=== PATIENT | male | born 1965 | race African-American/Black ===

== ENCOUNTER 2016-08-07 14:28 | Inpatient (IN) | payer MEDICARE, OTHER ==
[~2016-08-07] VITALS: Ht 179.1 cm; Wt 83.6 kg
[~2016-08-07 14:28] MED LIST: ASPI81TA9 PO; CARV6.25 PO; ERYT1OIN6 EACHEYE; HYDR-971 PO; LISI10TA2 PO; NAPR550T PO; OMEG300C PO; SPIR25TA3 PO
[2016-08-07] MEDS ORDERED: NITROGLYCERIN SUBLINGUAL 0.4 MG BOTTLE OF 25. SL PRN (14:45)
[2016-08-07] MEDS ORDERED: MORPHINE SULFATE 2 MG/ML DISP.SYRIN. IV/SQ PRN (14:45)
[2016-08-07 15:01] LABS: BASO # 0.1 x10^3/uL (0.0-0.2); BASO % 1 % (0-3); EOS % 1 % (0-3); HEMATOCRIT 42.9 % (39.0-53.0); HEMOGLOBIN 14.6 g/dL (13.0-17.5); LYMPH # 2.4 x10^3/uL (1.0-4.8); LYMPH % 54 % (24-48); MEAN CORPUSCULAR HEMOGLOBIN 33 pg (25-35); MEAN CORPUSCULAR HGB CONC 34 g/dL (31-37); MEAN CORPUSCULAR VOLUME 97 fL (79-100); MONO % 11 % (0-9); NEUT % 33 % (31-73); PLATELET COUNT 196 x10^3/uL (140-400); RED BLOOD COUNT 4.44 x10^6/uL (4.30-5.70); RED CELL DISTRIBUTION WIDTH 13.4 % (11.5-14.5); WHITE BLOOD COUNT 4.5 x10^3/uL (4.0-11.0)
[2016-08-07 15:10] LABS: INR 1.1 (0.8-1.1); PROTHROMBIN TIME PATIENT 13.5 SEC (11.7-14.0)
--- NOTE | 2016-08-07 15:10 | EKG ---
[facility] [address] [place] [address] Test Date: 2016-08-07 Test Time: 14:34:11 Pat Name: SAM CARRIZALES Department: Room: Gender: M Cable Layer: : 1965 Requested By: SHAHEEN BUSBY Order Number: [id number] Reading MD: Measurements Intervals [place] Rate: 83 P: 6 IA: 180 QRS: -13 QRSD: 90 T: -8 QT: 368 QTc: 433 Interpretive Statements SINUS RHYTHM LEFTWARD AXIS QRS(T) CONTOUR ABNORMALITY CONSISTENT WITH SEPTAL INFARCT AGE UNDETERMINED T ABNORMALITY IN ANTEROLATERAL LEADS ABNORMAL ECG RI6.01 No previous ECG available for comparison
[2016-08-07 15:22] LABS: CALCIUM 8.9 mg/dL (8.5-10.1); CREATININE 0.9 mg/dL (0.7-1.3); GFR 106.8; POTASSIUM 4.2 mmol/L (3.5-5.1)
--- NOTE | 2016-08-07 15:22 | RAD ---
Portable chest, 08/07/2016: History: Chest pain and numbness Comparison is made to a study from 01/10/2016. A left-sided AICD remains in place with a single lead extending into the right ventricle. The heart size and pulmonary vascularity are normal. There is a calcified granuloma in the left base. No pulmonary infiltrate is seen. There is no evidence of pleural fluid. IMPRESSION: No acute cardiopulmonary abnormality is detected.
[2016-08-07 15:29] LABS: ALBUMIN 3.5 g/dL (3.4-5.0); DIRECT BILIRUBIN 0.1 mg/dL (0.0-0.2); MAGNESIUM 1.8 mg/dL (1.8-2.4); TOTAL BILIRUBIN 0.5 mg/dL (0.2-1.0)
[2016-08-07 15:36] LABS: CKMB INDEX 0.6 % (0-4)
--- NOTE | 2016-08-07 15:53 | PHYS DOC ---
Past Medical History Past Medical History: Hypertension Additional Past Medical Histor: HEART FAILURE Past Surgical History: Pacemaker, Other Additional Past Surgical Histo: LEFT HAND SX FOR TENDON REPAIR, DEFIB Alcohol Use: Occasionally Drug Use: None Adult General Chief Complaint Chief Complaint: CHEST PAIN HPI HPI This is a 51 yo male who presents with ongoing chest pain for the past day. Pt states he has history of systolic heart failure and has an AICD/pacemaker device and follows up at [facility] cardiology for history of CHF. Patient states he had an episode approximately 8 days ago where he felt his device may have gone off and he actually had syncope after this. He did not come in for evaluation at that time. He states he crawled into his bed and rested and awoke the next day feeling a little better and then states over the next 3-5 days he was feeling better until yesterday when he developed chest pain that has now persisted and all localized to the midsternal area of his chest wall. Patient is fully alert and oriented this time and speaking in complete sentences in no acute distress. Review of Systems Review of Systems Constitutional: Denies fever or chills [] Eyes: Denies change in visual acuity, redness, or eye pain [] HENT: Denies nasal congestion or sore throat [] Respiratory: Denies cough or shortness of breath [] Cardiovascular: No additional information not addressed in HPI [] GI: Denies abdominal pain, nausea, vomiting, bloody stools or diarrhea [] : Denies dysuria or hematuria [] Musculoskeletal: Denies back pain or joint pain [] Integument: Denies rash or skin lesions [] Neurologic: Denies headache, focal weakness or sensory changes [] Endocrine: Denies polyuria or polydipsia [] Current Medications Current Medications Current Medications Medications (Trade) Dose Ordered Sig/Maritza Start Time Stop Time Status Last Admin Dose Admin Morphine Sulfate 2 mg PRN Q15MIN PRN 08/07/16 14:45 08/08/16 14:44 08/07/16 15:19 2 MG Nitroglycerin (Nitrostat) 0.4 mg PRN Q5MIN PRN 08/07/16 14:45 08/08/16 14:44 08/07/16 15:19 0.4 MG Allergies Allergies Allergies Coded Allergies Type Severity Reaction Last Updated Verified ibuprofen Allergy Mild Nausea 01/29/16 Yes Physical Exam Physical Exam Constitutional: Well developed, well nourished, no acute distress, non-toxic appearance. [] HENT: Normocephalic, atraumatic, bilateral external ears normal, oropharynx moist, no oral exudates, nose normal. [] Eyes: PERRLA, EOMI, conjunctiva normal, no discharge. [] Neck: Normal range of motion, no tenderness, supple, no stridor. [] Cardiovascular:Heart rate regular rhythm, no murmur [] Lungs & Thorax: Bilateral breath sounds clear to auscultation [] Abdomen: Bowel sounds normal, soft, no tenderness, no masses, no pulsatile masses. [] Skin: Warm, dry, no erythema, no rash. [] Back: No tenderness, no CVA tenderness. [] Extremities: No tenderness, no cyanosis, no clubbing, ROM intact, no edema. [] Neurologic: Alert and oriented X 3, normal motor function, normal sensory function, no focal deficits noted. [] Psychologic: Affect normal, judgement normal, mood normal. [] Current Patient Data Vital Signs Vital Signs Date Time Temp Pulse Resp B/P Pulse Ox O2 Delivery O2 Flow Rate FiO2 08/07/16 15:35 73 18 161/96 99 Room Air 08/07/16 14:32 97.6 97.6 Lab Values Laboratory Tests Test 08/07/16 14:50 White Blood Count 4.5x10^3/uL (4.0-11.0) Red Blood Count 4.44x10^6/uL (4.30-5.70) Hemoglobin 14.6g/dL (13.0-17.5) Hematocrit 42.9% (39.0-53.0) Mean Corpuscular Volume 97fL (79-100) Mean Corpuscular Hemoglobin 33pg (25-35) Mean Corpuscular Hemoglobin Concent 34g/dL (31-37) Red Cell Distribution Width 13.4% (11.5-14.5) Platelet Count 196x10^3/uL (140-400) Neutrophils (%) (Auto) 33% (31-73) Lymphocytes (%) (Auto) 54% (24-48) H Monocytes (%) (Auto) 11% (0-9) H Eosinophils (%) (Auto) 1% (0-3) Basophils (%) (Auto) 1% (0-3) Neutrophils # (Auto) 1.5x10^3uL (1.8-7.7) L Lymphocytes # (Auto) 2.4x10^3/uL (1.0-4.8) Monocytes # (Auto) 0.5x10^3/uL (0.0-1.1) Eosinophils # (Auto) 0.0x10^3/uL (0.0-0.7) Basophils # (Auto) 0.1x10^3/uL (0.0-0.2) Prothrombin Time 13.5SEC (11.7-14.0) Prothrombin Time INR 1.1 (0.8-1.1) Sodium Level 142mmol/L (136-145) Potassium Level 4.2mmol/L (3.5-5.1) Chloride Level 107mmol/L (98-107) Carbon Dioxide Level 25mmol/L (21-32) Anion Gap 10 (6-14) Blood Urea Nitrogen 10mg/dL (8-26) Creatinine 0.9mg/dL (0.7-1.3) Estimated GFR (Cockcroft-Gault) 106.8 Glucose Level 95mg/dL (70-99) Calcium Level 8.9mg/dL (8.5-10.1) Magnesium Level 1.8mg/dL (1.8-2.4) Total Bilirubin 0.5mg/dL (0.2-1.0) Direct Bilirubin 0.1mg/dL (0.0-0.2) Aspartate Amino Transferase (AST) 19U/L (15-37) Alanine Aminotransferase (ALT) 21U/L (16-63) Alkaline Phosphatase 67U/L (46-116) Creatine Kinase 160U/L (39-308) Creatine Kinase MB (Mass) 1.0ng/mL (0.0-3.6) Creatine Kinase MB Relative Index 0.6% (0-4) Troponin I Quantitative < 0.017ng/mL (0.000-0.055) HE-Zjk-D-Type Natriuretic Peptide 688pg/mL (0-124) H Total Protein 7.0g/dL (6.4-8.2) Albumin 3.5g/dL (3.4-5.0) Thyroid Stimulating Hormone (TSH) 0.708uIU/mL (0.358-3.74) Laboratory Tests 08/07/16 14:50 Laboratory Tests 08/07/16 14:50 EKG EKG EKG as interpreted by me shows a sinus rhythm with a leftward axis with an approximate rate of 83 bpm. There are some T-wave inversions noted to V5 and V6 as well as lead 3. There are no other obvious findings. This EKG does not meet STEMI criteria. Radiology/Procedures Radiology/Procedures One view of the chest as interpreted by me did not reveal an acute cardiopulmonary process. Course & Med Decision Making Course & Med Decision Making Pertinent Labs and Imaging studies reviewed. (See chart for details) This 51-year-old male who's having ongoing chest pain will be admitted for further evaluation treatment. His Medtronic device was interrogated and using the Carelink device. I spoke to the [employer] sales development representative who stated there were no episodes of cardiac dysrhythmia that required any treatment over the last few weeks so it is questionable whether he actually had a device firing a week ago. It showed nonsustained V. tach and an episode of SVT two days ago that was 21 seconds in duration. His laboratory workup was unremarkable. I discussed the need to admit the patient with the hospitalist, Dr. Vale, who agreed to accept the patient for further direction treatment with a cardiology consult. I discussed the case with the biofuels technology manager advanced practitioner who agreed with this assessment and plan. His EKG and chest film were fairly unremarkable at this time. He was admitted without incident for his ongoing chest pain. Dragon Disclaimer Dragon Disclaimer This electronic medical record was generated, in whole or in part, using a voice recognition dictation system. Departure Departure Impression: Primary Impression: Chest pain Disposition: ADMITTED INPATIENT Admitting Physician: Dora Vale Condition: STABLE Referrals: NELLA GALLOWAY (PCP) LUCERO ENG DO Aug 07, 2016 15:53
[2016-08-07] MEDS ORDERED: ONDANSETRON PF 4 MG/2 ML VIAL. IV PRN ×2 (16:00→17:00)
[2016-08-07] MEDS ORDERED: MORPHINE SULFATE 4 MG/ML DISP.SYRIN. IV PRN (16:00)
[2016-08-07] MEDS ORDERED: ACETAMINOPHEN 325 MG TABLET. PO PRN ×2 (16:00→17:00)
--- NOTE | 2016-08-07 16:03 | PDOC2 ---
MAR BROWN DATA SYSTEMS ANALYST 08/07/16 1603: CARDIAC CONSULT DATE OF CONSULT Date of Consult DATE: 08/07/16 TIME: 15:55 REASON FOR CONSULT Reason for Consult: Chest pain REFERRING PHYSICIAN Referring Physician: Courtney SOURCE Source: Chart review, Patient HISTORY OF PRESENT ILLNESS HISTORY OF PRESENT ILLNESS This is a pleasantly anxious 51 yo male admitted for complains of chest pain. Reports of chest pain which is reproducible pounding focal to left lateral chest pointed to anterior axillary line. Initially this started yesterday morning which got better after 20 minutes initiated while preparing breakfast. This then improved and slept. He felt weak after that. This morning he took a shower and was having the same discomfort but was not bad and then proceeded to go to his friends house when his chest pain which was pounding came back and felt diaphoretic. Denies any palpitations but he did passed out twice about 8 days ago and felt that his AICD fired but did not receive any phone call from [employer] and also he did not go to his PCP nor senior pharmacy technician nor contact them because it was his birthday that week. Denies any SOA, MULLEN. While he was having chest pain he also complains of brief left groin discomfort. The last time his AICD was interrogate was a month ago but verbalized compliance with his routine downloads. He takes sotalol, coreg, ASA, lisinopril and aldactone. No regimen for lasix, statin, nor any OAC/NOAC. He is significant for V-fib in the past and had AMI 2012 and was told of EF of 15% and verbalized no stents placed. In prior evaluation he was also told that he may need a heart transplant. He continues to smoke tobacco and occasional ETOH. Denies falls, recent injury, prior VTE. PAST MEDICAL HISTORY Cardiovascular: CAD, HTN, [place], Hyperlipidemia, Other (Vfib) Pulmonary: No pertinent hx CENTRAL NERVOUS SYSTEM: Other (No pertinent history) GI: No pertinent hx Heme/Onc: No pertinent hx Hepatobiliary: No pertinent hx Psych: No pertinent hx Musculoskeletal: Osteoarthritis Rheumatologic: No pertinent hx Infectious disease: No pertinent hx ENT: No pertinent hx Renal/: No pertinent hx PAST SURGICAL HISTORY Past Surgical History: Pacemaker (AICD), Other (Left hand surgery) FAMILY HISTORY Family History: Coronary Artery Disease (father, cousins) SOCIAL HISTORY Smoke: <1 pack per day ALCOHOL: occassional Drugs: None, Marijuana (in the past) Lives: with Family CURRENT MEDICATIONS CURRENT MEDICATIONS Current Medications Medications (Trade) Dose Ordered Sig/Maritza Route PRN Reason Start Time Stop Time Status Last Admin Dose Admin Nitroglycerin (Nitrostat) 0.4 mg PRN Q5MIN PRN SL CP RATING > 1/10 08/07/16 14:45 08/08/16 14:44 08/07/16 15:19 Morphine Sulfate 2 mg PRN Q15MIN PRN IV/SQ PAIN GREATER THAN 3/10 08/07/16 14:45 08/08/16 14:44 08/07/16 15:19 ALLERGIES ALLERGIES: Coded Allergies: ibuprofen (Verified Allergy, Mild, Nausea, 01/29/16) ROS Review of System 14 point ROS evaluated with pertinent positives noted per HPI PHYSICAL EXAM General: Alert, Oriented X3, Cooperative, No acute distress HEENT: Atraumatic, Mucous membr. moist/pink Lungs: Clear to auscultation, Normal air movement Heart: Regular rate, Normal S1, Normal S2, Other (2/6 systolic murmur to LLS border) Abdomen: Soft, No tenderness Extremities: No cyanosis, No edema Skin: No breakdown, No significant lesion Neuro: Normal speech, Sensation intact Psych/Mental Status: Mental status NL, Mood NL MUSCULOSKELETAL: Osteoarthritic changes both hands VITALS VITALS Vital Signs Date Time Temp Pulse Resp B/P Pulse Ox O2 Delivery O2 Flow Rate FiO2 08/07/16 15:19 75 162/103 08/07/16 14:32 97.6 18 100 Room Air 97.6 LABS Lab: Laboratory Tests Test 08/07/16 14:50 White Blood Count 4.5x10^3/uL (4.0-11.0) Red Blood Count 4.44x10^6/uL (4.30-5.70) Hemoglobin 14.6g/dL (13.0-17.5) Hematocrit 42.9% (39.0-53.0) Mean Corpuscular Volume 97fL (79-100) Mean Corpuscular Hemoglobin 33pg (25-35) Mean Corpuscular Hemoglobin Concent 34g/dL (31-37) Red Cell Distribution Width 13.4% (11.5-14.5) Platelet Count 196x10^3/uL (140-400) Neutrophils (%) (Auto) 33% (31-73) Lymphocytes (%) (Auto) 54% (24-48) Monocytes (%) (Auto) 11% (0-9) Eosinophils (%) (Auto) 1% (0-3) Basophils (%) (Auto) 1% (0-3) Neutrophils # (Auto) 1.5x10^3uL (1.8-7.7) Lymphocytes # (Auto) 2.4x10^3/uL (1.0-4.8) Monocytes # (Auto) 0.5x10^3/uL (0.0-1.1) Eosinophils # (Auto) 0.0x10^3/uL (0.0-0.7) Basophils # (Auto) 0.1x10^3/uL (0.0-0.2) Prothrombin Time 13.5SEC (11.7-14.0) Prothromb Time International Ratio 1.1 (0.8-1.1) Sodium Level 142mmol/L (136-145) Potassium Level 4.2mmol/L (3.5-5.1) Chloride Level 107mmol/L (98-107) Carbon Dioxide Level 25mmol/L (21-32) Anion Gap 10 (6-14) Blood Urea Nitrogen 10mg/dL (8-26) Creatinine 0.9mg/dL (0.7-1.3) Estimated GFR (Cockcroft-Gault) 106.8 Glucose Level 95mg/dL (70-99) Calcium Level 8.9mg/dL (8.5-10.1) Magnesium Level 1.8mg/dL (1.8-2.4) Total Bilirubin 0.5mg/dL (0.2-1.0) Direct Bilirubin 0.1mg/dL (0.0-0.2) Aspartate Amino Transf (AST/SGOT) 19U/L (15-37) Alanine Aminotransferase (ALT/SGPT) 21U/L (16-63) Alkaline Phosphatase 67U/L (46-116) Creatine Kinase 160U/L (39-308) Creatine Kinase MB (Mass) 1.0ng/mL (0.0-3.6) Creatine Kinase MB Relative Index 0.6% (0-4) Troponin I Quantitative < 0.017ng/mL (0.000-0.055) CD-Yir-R-Type Natriuretic Peptide 688pg/mL (0-124) Total Protein 7.0g/dL (6.4-8.2) Albumin 3.5g/dL (3.4-5.0) ECHOCARDIOGRAM ECHOCARDIOGRAM <Conclusion> The left ventricle is normal size. There is borderline to mild concentric left ventricular hypertrophy. Left ventricle systolic function is mildly to moderately impaired. The Ejection Fraction is 35-40%. The aortic valve is normal in structure and function. Doppler and Color Flow revealed no significant aortic regurgitation. There is no significant aortic valvular stenosis. The mitral valve is normal in structure and function. There is no mitral valve stenosis. Doppler and Color Flow revealed no mitral valve regurgitation noted. Doppler and Color Flow revealed trace tricuspid regurgitation. The PA pressure was estimated at 30 mmHg. The pulmonary valve is normal in structure. There is no evidence of significant pericardial effusion. DATE: 09/20/14 1043 STRESS TEST STRESS TEST Conclusion 1. The baseline electrocardiogram showed ST segment depression and inverted T waves in the inferolateral leads suggestive of myocardial ischemia. 2. There were no further electrocardiographic changes with pharmacological stress. 3. There is a moderate sized areas of ischemia over the lateral wall. There is another small area of ischemia over the apex. 4. There is no significant scar. There is normal wall thickening over the rest of the myocardium 5. There is diffuse decrease in wall motion throughout the myocardium with an ejection fraction of 38%. 6. Scan indicates moderate risk for future cardiac events. DATE: 09/20/14 1028 ASSESSMENT/PLAN ASSESSMENT/PLAN 1. Chest pain (mixed typical/atypical features): focal nonradiating reproducible left chest pain. initial trop normal. EKG SR with new symmetrical t wave inversions to V5-V6. 2. CAD: hx of [place] 2012 requiring IABP and eventual placement of AICD with known V -fib. Verbalized no stents in the past. 3. HTN: labile 4. HLP: no routine statin at home 5. Chronic systolic CHF/Ischemic cardiomyopathy: last known EF 35-40% 07/2016. Last follow up with [facility] cardiology 6 months ago. Compensated 6. Syncope: x2 8 days ago, with verbalized firing of AICD. Failed to follow up with cardiology. 7. AICD in situ: medtronic 8. Tobaccoism 9. Known for noncompliance in the past: left AMA 12/2015 from ED for CP. Recommendations 1. Continue with routine home cardiac regimen. Currently on coreg and sotalol ( likely use for ventricular arrhythmia). QTc 433 2. Continue with secondary prevention 3. Interrogate device and note activity specifically from [address] old [facility] records. 4. Lipid panel, BMP, Mg, TSH in AM. Tox screen, trend top. Repeat EKG in AM. 5. TTE tomorrow. NPO after midnight. Ischemic workup tomorrow. 6. Smoking cessation, emphasized compliance. Problems: JUSTINO PAL MD 08/08/16 0810: CARDIAC CONSULT ALLERGIES ALLERGIES: Coded Allergies: ibuprofen (Verified Allergy, Mild, Nausea, 01/29/16) ASSESSMENT/PLAN ASSESSMENT/PLAN Patient seen and examined 08/07/16. Agree with HI LOW TRUCK DRIVER's assessment and plan. Chest pain with atypical features. Check 2-D echo to assess LV systolic function and Lexiscan nuclear stress test to rule out ischemia. Chronic systolic heart failure well compensated. We will obtain records from [facility]. We will also have his AICD interrogated to evaluate for any shock therapies 8 days ago as stated by patient. Thank you for consultation Problems: MAR BROWN APRN Aug 07, 2016 16:03 JUSTINO PAL MD Aug 08, 2016 08:10
[2016-08-07] MEDS ORDERED: hydrALAZINE 20 MG/ML VIAL. IVP PRN (17:00)
[2016-08-07] MEDS ORDERED: CARVEDILOL 6.25 MG TABLET PO SCH (17:00)
--- NOTE | 2016-08-07 17:11 | PDOC1 ---
History and Physical Date of Admission Date of Admission 08/07/16 Identification/Chief Complaint Chief Complaint chest pain, weak Problems: Source Source: Chart review, Patient History of Present Illness History of Present Illness 51yo M with h/o CAD wo PCI , CHF , post PPM/AICD in 2014, comes for chest pain. Pt started to feel weak on 07/27, when he syncoped twice at home, not much chest pain at that time, not sure if he felt palpitation or ICD SHOCK at that time. He woke up found BM incontinence. 2 days ago, with severe nausea, diarrhea. He had chest pain yesterday, and severe again today, radiating to left arm, left leg, without sob. 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 compliant with meds, but <1ppd. Past Medical History Cardiovascular: CAD, HTN, [place], Hyperlipidemia, Other (Vfib) Pulmonary: No pertinent hx CENTRAL NERVOUS SYSTEM: Other (No pertinent history) GI: No pertinent hx Heme/Onc: No pertinent hx Hepatobiliary: No pertinent hx Psych: No pertinent hx Rheumatologic: No pertinent hx Infectious disease: No pertinent hx ENT: No pertinent hx Renal/: No pertinent hx Past Surgical History Past Surgical History: Pacemaker (AICD), Other (Left hand surgery) Family History Family History: Coronary Artery Disease (father, cousins) Social History Smoke: <1 pack per day ALCOHOL: occassional Drugs: None, Marijuana (in the past) Current Problem List Problem List Problems Medical Problems: (1) Chest pain Status: Acute Current Medications Current Medications Current Medications Medications (Trade) Dose Ordered Sig/Maritza Start Time Stop Time Status Last Admin Dose Admin Acetaminophen (Tylenol) 650 mg PRN Q4HRS PRN 08/07/16 16:00 08/08/16 15:59 Aspirin (Ecotrin) 81 mg DAILY 08/08/16 09:00 Carvedilol (Coreg) 25 mg BID 08/07/16 21:00 UNV Lisinopril (Prinivil) 10 mg DAILY 08/08/16 09:00 UNV Morphine Sulfate 4 mg PRN Q2HR PRN 08/07/16 16:00 08/08/16 15:59 Nitroglycerin (Nitrostat) 0.4 mg PRN Q5MIN PRN 08/07/16 14:45 08/08/16 14:44 08/07/16 15:19 0.4 MG Ondansetron HCl (Zofran) 4 mg PRN Q8HRS PRN 08/07/16 16:00 08/08/16 15:59 Sotalol HCl (Betapace) 80 mg BID 08/07/16 21:00 UNV Spironolactone (Aldactone) 25 mg DAILY 08/08/16 09:00 UNV Allergies Allergies Allergies Coded Allergies Type Severity Reaction Last Updated Verified ibuprofen Allergy Mild Nausea 01/29/16 Yes ROS Review of System CONSTITUTIONAL: No fever or chills EYES: No recent changes SKIN: No rash or itching CARDIOVASCULAR: No chest pain, syncope, palpitations, or edema RESPIRATORY: No SOB or cough GASTROINTESTINAL: No nausea, vomiting or abdominal pain NEUROLOGICAL: No headaches or weakness ENDOCRINE: No cold or heat intolerance GENITOURINARY: No urgency or frequency of urination MUSCULOSKELETAL: No back pain or joint pain LYMPHATICS: No enlarged lymph nodes PSYCHIATRIC: No anxiety or depression Physical Exam Physical Exam GEN.: No apparent distress. Alert and oriented. HEENT: Head is normocephalic, atraumatic NECK: Supple. LUNGS: Clear to auscultation. HEART: RRR, S1, S2 present. Peripheral pulses intact ABDOMEN: Soft, nontender. Positive bowel sounds. EXTREMITIES: Without any cyanosis. NEUROLOGIC: Normal speech, normal tone PSYCHIATRIC: Normal affect, normal mood. SKIN: No ulcerations Vitals Vitals Vital Signs Date Time Temp Pulse Resp B/P Pulse Ox O2 Delivery O2 Flow Rate FiO2 08/07/16 15:19 75 162/103 08/07/16 14:32 97.6 18 100 Room Air 97.6 Labs Labs Laboratory Tests Test 08/07/16 14:50 White Blood Count 4.5x10^3/uL (4.0-11.0) Red Blood Count 4.44x10^6/uL (4.30-5.70) Hemoglobin 14.6g/dL (13.0-17.5) Hematocrit 42.9% (39.0-53.0) Mean Corpuscular Volume 97fL (79-100) Mean Corpuscular Hemoglobin 33pg (25-35) Mean Corpuscular Hemoglobin Concent 34g/dL (31-37) Red Cell Distribution Width 13.4% (11.5-14.5) Platelet Count 196x10^3/uL (140-400) Neutrophils (%) (Auto) 33% (31-73) Lymphocytes (%) (Auto) 54% (24-48) Monocytes (%) (Auto) 11% (0-9) Eosinophils (%) (Auto) 1% (0-3) Basophils (%) (Auto) 1% (0-3) Neutrophils # (Auto) 1.5x10^3uL (1.8-7.7) Lymphocytes # (Auto) 2.4x10^3/uL (1.0-4.8) Monocytes # (Auto) 0.5x10^3/uL (0.0-1.1) Eosinophils # (Auto) 0.0x10^3/uL (0.0-0.7) Basophils # (Auto) 0.1x10^3/uL (0.0-0.2) Prothrombin Time 13.5SEC (11.7-14.0) Prothromb Time International Ratio 1.1 (0.8-1.1) Sodium Level 142mmol/L (136-145) Potassium Level 4.2mmol/L (3.5-5.1) Chloride Level 107mmol/L (98-107) Carbon Dioxide Level 25mmol/L (21-32) Anion Gap 10 (6-14) Blood Urea Nitrogen 10mg/dL (8-26) Creatinine 0.9mg/dL (0.7-1.3) Estimated GFR (Cockcroft-Gault) 106.8 Glucose Level 95mg/dL (70-99) Calcium Level 8.9mg/dL (8.5-10.1) Magnesium Level 1.8mg/dL (1.8-2.4) Total Bilirubin 0.5mg/dL (0.2-1.0) Direct Bilirubin 0.1mg/dL (0.0-0.2) Aspartate Amino Transf (AST/SGOT) 19U/L (15-37) Alanine Aminotransferase (ALT/SGPT) 21U/L (16-63) Alkaline Phosphatase 67U/L (46-116) Creatine Kinase 160U/L (39-308) Creatine Kinase MB (Mass) 1.0ng/mL (0.0-3.6) Creatine Kinase MB Relative Index 0.6% (0-4) Troponin I Quantitative < 0.017ng/mL (0.000-0.055) OX-Qtz-J-Type Natriuretic Peptide 688pg/mL (0-124) Total Protein 7.0g/dL (6.4-8.2) Albumin 3.5g/dL (3.4-5.0) Laboratory Tests Test 08/07/16 14:50 White Blood Count 4.5x10^3/uL (4.0-11.0) Red Blood Count 4.44x10^6/uL (4.30-5.70) Hemoglobin 14.6g/dL (13.0-17.5) Hematocrit 42.9% (39.0-53.0) Mean Corpuscular Volume 97fL (79-100) Mean Corpuscular Hemoglobin 33pg (25-35) Mean Corpuscular Hemoglobin Concent 34g/dL (31-37) Red Cell Distribution Width 13.4% (11.5-14.5) Platelet Count 196x10^3/uL (140-400) Neutrophils (%) (Auto) 33% (31-73) Lymphocytes (%) (Auto) 54% (24-48) Monocytes (%) (Auto) 11% (0-9) Eosinophils (%) (Auto) 1% (0-3) Basophils (%) (Auto) 1% (0-3) Neutrophils # (Auto) 1.5x10^3uL (1.8-7.7) Lymphocytes # (Auto) 2.4x10^3/uL (1.0-4.8) Monocytes # (Auto) 0.5x10^3/uL (0.0-1.1) Eosinophils # (Auto) 0.0x10^3/uL (0.0-0.7) Basophils # (Auto) 0.1x10^3/uL (0.0-0.2) Prothrombin Time 13.5SEC (11.7-14.0) Prothromb Time International Ratio 1.1 (0.8-1.1) Sodium Level 142mmol/L (136-145) Potassium Level 4.2mmol/L (3.5-5.1) Chloride Level 107mmol/L (98-107) Carbon Dioxide Level 25mmol/L (21-32) Anion Gap 10 (6-14) Blood Urea Nitrogen 10mg/dL (8-26) Creatinine 0.9mg/dL (0.7-1.3) Estimated GFR (Cockcroft-Gault) 106.8 Glucose Level 95mg/dL (70-99) Calcium Level 8.9mg/dL (8.5-10.1) Magnesium Level 1.8mg/dL (1.8-2.4) Total Bilirubin 0.5mg/dL (0.2-1.0) Direct Bilirubin 0.1mg/dL (0.0-0.2) Aspartate Amino Transf (AST/SGOT) 19U/L (15-37) Alanine Aminotransferase (ALT/SGPT) 21U/L (16-63) Alkaline Phosphatase 67U/L (46-116) Creatine Kinase 160U/L (39-308) Creatine Kinase MB (Mass) 1.0ng/mL (0.0-3.6) Creatine Kinase MB Relative Index 0.6% (0-4) Troponin I Quantitative < 0.017ng/mL (0.000-0.055) ZB-Vsb-U-Type Natriuretic Peptide 688pg/mL (0-124) Total Protein 7.0g/dL (6.4-8.2) Albumin 3.5g/dL (3.4-5.0) VTE Prophylaxis Ordered VTE Prophylaxis Devices: Yes VTE Pharmacological Prophylaxi: Yes Assessment/Plan Assessment/Plan 1. chest pain, need to rule out unstable angina 2. h/o CAD post ICD,PPM 3. chronic systolic CHF EF 35% 2014 4. HTN 5.HLD 6. SYNcope 07/27, like 2/2 arrythmia 7. tobaccoism 8. non compliance before AMA 12/2015 as per card 9. drug abuse with marijuana, pt said only one time tho 10. h/o vfib? plan: 1. fu with card 2. echo cycle CE 3. cont home meds 4. check lipid panel, pt not takes meds at home for it 5. ICD interrogation 6. may need stress test or cath? dvt ppx drug tox CLAUDIO VELÁSQUEZ MD Aug 07, 2016 17:11
--- NOTE | 2016-08-07 17:33 | ACF ---
Admission Forms Criteria CARDIOLOGY GRG Clinical Indications for Admission to Inpatient Care ( Place 'X' for any and all applicable criteria): Hospital admission is needed for appropriate care of the patient because of ANY ONE of the following (1): [ ] I. Hemodynamic instability as indicated by ALL of the following (1)(2)(3) (4)(5) [ ]a) Vital signs or other findings not as expected for chronic patient condition or baseline [ ]b) Instability indicated by ANY ONE of the following: [ ]i) Hypotension [ ]ii) Symptomatic Tachycardia unresponsive to treatment ( e.g., analgesia, fluids, sedation as indicated) [ ]iii) Inadequate perfusion indicated by ANY ONE of the following: [ ] 1) Lactic acidosis (> 2 mmol/L) [ ] 2) New abnormal capillary refill (> 3 seconds) [ ] 3) Reduced urine output [ ] 4) New altered mental status [ ]iv) Orthostatic vital sign changes unresponsive to treatment (e.g., fluids) [ ]v) IV inotropic or vasopressor medication required to maintain adequate blood pressure or perfusion [ ] II. Severe heart failure as indicated by ANY ONE of the following(17)(18) [ ]a) Respiratory distress [ ]b) Hypotension [ ]c) Anasarca (refractory to outpatient therapy) [ ]d) Cardiac arrhythmias of immediate concern [ ]e) Myocardial ischemia [ ] III. Cardiac arrhythmias or findings of immediate concern indicated by ANY ONE of the following (19)(20): [ ] a) Heart rhythms that are inherently dangerous or unstable indicated by ANY ONE of the following (21)(22)(23): [ ] i) Resuscitated ventricular fibrillation or cardiac arrest [ ] ii) Ventricular escape rhythm [ ] iii) Sustained ventricular tachycardia (30 seconds or more of ventricular rhythm at greater than 100 beats per minute) [ ] iv) Nonsustained ventricular tachycardia and ANY ONE of the following: [ ] 1) Suspected cardiac ischemia as cause or consequence of ventricular tachycardia [ ] 2) In setting of acute myocarditis [ ] b) Unstable cardiac conduction defects indicated by ANY ONE of the following(23)(24)(25) [ ] i) Type II second-degree atrioventricular block [ ]ii) Third-degree atrioventricular block [ ]iii) New-onset left bundle branch block with suspected myocardial ischemia [ ]c) Any heart rhythm and ANY ONE of the following (21)(22)(26)(27) (28) [ ] i) Continuous long-term ECG monitoring needed (e.g., initiation of drug requiring monitoring for more than 24 hours) [ ] ii) Patient has automatic implanted cardioverter defibrillator that is repeatedly firing, malfunctioning, or in need of immediate adjustment of settings beyond the scope of ambulatory or observation care [ ]d) Heart rhythms of concern due to ANY ONE of the following: [ ] i) Hypotension [ ] ii) Respiratory distress [ ] iii) Association with other significant symptoms (e.g., bradycardia with syncope or ongoing dizziness, supraventricular tachycardia with chest pain (14)(15)(17) [ ] IV. Monitoring for cardiac contusion beyond the scope of observation care needed [A](30)(31)(32) [ ] V. Surgical or device complication (e.g., valve replacement complication , pacemaker dysfunction) (35)(41)(44)(45)(46) [ ] . Inpatient palliative care needed. [B](49) Also use Inpatient Palliative Care Criteria [ ] VII. Nonbacterial thrombotic (marantic) endocarditis (36)(43)(47)(48) [X] VIII. Cardiology condition, symptom, or finding for which emergency and observation care has failed or are not considered appropriate. [ ] IX. Acute valvular disease requiring inpatient as indicated by ANY ONE of the following (41) [ ]a) Acute valvular regurgitation (42) [ ]b) Noninfectious valvulitis (43) [ ]c) Obstructive valve thrombosis [ ]d) Paravalvular leak [ ]e) Other significant valvular disorder remaining after emergency or observation level of care (as appropriate) [ ]X. Pericardial disease requiring inpatient treatment as indicated by ANY ONE of the following (33)(34)(35)(36)(37) [ ]a) Suspected tamponade (38)(39)(40) [ ]b) Hemopericardium [ ]c) Other significant pericardial disorder remaining after emergency or observation level of care (as appropriate) [ ] XI. Cardiac ischemia beyond scope of emergency and observation care. [ ] XII. Hypertension requiring inpatient treatment as indicated by ANY ONE of the following (6)(7)(8) [ ]a) SBP greater than 220 mm Hg or DBP greater than 120 mmHg despite treatment [ ]b) SBP greater than 140 mm Hg or DBP greater than 100 mm Hg with evidence of acute end organ damage as indicated by ANY ONE of the following [ ] i) Encephalopathy [ ] ii) Acute renal failure as indicated by new onset of ANY ONE of the following (9)(10)(11)(12)(13) [ ]1) 3-fold rise in serum creatinine from baseline [ ]2) Serum creatinine greater than 4 mg/dL ( 354 micromoles/L) with acute rise greater than 0.5 mg/dL (44.2 micromoles/L) [ ]3) Reduction of more than 75% in estimated glomerular filtration rate from baseline [ ]4) Estimated glomerular filtration rate less than 35 mL/min/1.73m2 (0.59 mL/sec/1.73m2) in child up to 18 years of age [ ]5) Cessation of urine output indicated by ALL of the following [ ]A. Adequate volume status [ ]B. Inadequate urine output as indicated by ANY ONE of the following [ ]a. Urine output less than 0.3 mL/kg/hr for 24 hours [ ]b. Anuria (urine output less than 0.1 mL/kg/hr) for 12 hours [ ] iii) Aortic dissection [ ] iv) Myocardial Ischemia [ ] v) Left ventricular heart failure [ ]vi) Retinal Hemorrhage [ ]vii) Other significant finding [ ]c) Hypertension in child requiring inpatient treatment as indicated by ALL of the following(14)(15)(16) [ ] i) Outpatient treatment not effective, not available, or not appropriate [ ]ii) SBP or DBP greater than 95th percentile for age [ ]iii) Evidence of acute end organ damage as indicated by ANY ONE of the following [ ]1) Altered mental status [ ]2) Acute renal failure as indicated by new onset of ANY ONE of the following(9)(10)(11)(12)(13) [ ]A. 3-fold rise in serum creatinine from baseline [ ]B. Serum creatinine greater than 4 mg/dL (354 micromoles/L) with acute rise greater than 0.5 mg/dL (44.2 micromoles/L) [ ]C. Reduction of more than 75% in estimated glomerular filtration rate from baseline [ ]D. Estimated glomerular filtration rate less than 35 mL/min/1.73m2 (0.59 mL/sec/1.73m2) in child up to 18 years of age [ ]E. Cessation of urine output indicated by ALL of the following [ ]a. Adequate volume status [ ]b. Inadequate urine output as indicated by ANY ONE of the following [ ]i) Urine output less than 0.3 mL/kg/hr for 24 hours [ ]ii) Anuria ( urine output less than 0.1 mL/kg/hr) for 12 hours [ ]3) Severe headache [ ]4) Visual disturbance [ ]5) Retinal hemorrhage [ ]6) Other significant finding [ ]XIII. Complications of transplanted heart indicated by ANY ONE of the following(61): [ ]a) Acute graft rejection requiring inpatient management (eg, intravenous immunosuppression)(62)(63) [ ]b) Acute graft heart failure indicated by ANY ONE of the following(64): [ ]i) Hemodynamic instability [ ]ii) Cardiac arrhythmias of immediate concern [ ]iii) Pulmonary edema that is very severe (eg, mechanical ventilation needed, imminent or likely, need for 100% oxygen to keep oxygen saturation above 90%) [ ]iv) Pulmonary edema that is persistent as indicated by ALL of the following: [ ]1) New need for oxygen therapy to keep oxygen saturation above 90% (or increased FiO2 need from baseline) [ ]2) Has not improved sufficiently with emergency department or observation care IV diuretics or other heart failure treatments[E] [ ]v) Altered mental status that is severe or persistent [ ]vi) Increased creatinine (new on laboratory test) with reduction of more than 50% in estimated glomerular filtration rate from baseline [ ]vii) Progressively (ongoing) rising creatinine (known from past laboratory test) with reduction of more than 25% in estimated glomerular filtration rate from baseline [ ]viii) Acute renal failure [ ]ix) Acute peripheral ischemia (eg, examination shows pulseless, cool, mottled, or cyanotic extremity) [ ]x) Pulmonary artery catheter monitoring needed [ ]xi) Other sign or symptom of heart failure requiring inpatient treatment (ie, too severe or not responsive to outpatient and observation care treatment) [ ]c) Infection requiring inpatient management (eg, Hemodynamic instability, need for intravenous antimicrobial treatment)(66)(67)(68)(69)(70) [ ]d) Cardiac allograft vasculopathy requiring inpatient management ( eg evidence of cardiac ischemia)(71) [ ]e) Other complication of transplanted heart (eg, stroke, severe pulmonary hypertension, severe valvular dysfunction) requiring inpatient management(72) The original [facility] content created by [facility] has been revised. The portions of the content which have been revised are identified through the use of italic text or in bold, and [facility] has neither reviewed nor approved the modified material. All other unmodified content is copyright [facility]. Please see references footnoted in the original [facility] edition 2016 Admission Criteria Met?: Yes CONSTANCE ALLISON Aug 07, 2016 17:33
[2016-08-07 17:52] LABS: BILIRUBIN,URINE NEGATIVE (NEG); GLUCOSE,URINE NEGATIVE (NEG); NITRITE,URINE NEGATIVE (NEG); PH,URINE 6.5; PROTEIN,URINE NEGATIVE (NEG-TRACE); UROBILINOGEN,URINE 0.2 mg/dL (0.2 mg/dL)
[2016-08-07 17:56] LABS: BACTERIA,URINE 0 /HPF (0-FEW); RBC,URINE 0 /HPF (0-2); WBC,URINE 0 /HPF (0-4)
[2016-08-07 18:39] VITALS: BP 189/111
[2016-08-07 19:20] VITALS: BP 174/92
[2016-08-07] MEDS: SPIRONOLACTONE 25 MG TABLET PO SCH (20:00)
[2016-08-07] MEDS: LISINOPRIL 10 MG TABLET PO SCH (20:00)
[2016-08-07] MEDS: ENOXAPARIN 40 MG/0.4 ML DISP.SYRIN. SQ SCH (20:01)
[2016-08-07] MEDS: SOTALOL 80 MG TABLET. PO SCH (22:33)
[2016-08-07 22:34] VITALS: BP 141/77
[2016-08-08 03:20] VITALS: BP 134/79
[2016-08-08 04:25] LABS: BASO % 1 % (0-3); EOS % 1 % (0-3); HEMATOCRIT 41.2 % (39.0-53.0); LYMPH # 3.5 x10^3/uL (1.0-4.8); LYMPH % 68 % (24-48); MEAN CORPUSCULAR HEMOGLOBIN 33 pg (25-35); MEAN CORPUSCULAR HGB CONC 34 g/dL (31-37); MEAN CORPUSCULAR VOLUME 97 fL (79-100); MONO % 8 % (0-9); NEUT % 21 % (31-73); PLATELET COUNT 192 x10^3/uL (140-400); RED BLOOD COUNT 4.27 x10^6/uL (4.30-5.70); RED CELL DISTRIBUTION WIDTH 13.8 % (11.5-14.5); WHITE BLOOD COUNT 5.1 x10^3/uL (4.0-11.0)
[2016-08-08 04:33] LABS: CALCIUM 8.8 mg/dL (8.5-10.1); CREATININE 0.8 mg/dL (0.7-1.3); GFR 122.4; POTASSIUM 4.5 mmol/L (3.5-5.1)
[2016-08-08 04:40] LABS: CHOLESTEROL/HDL RATIO 3.3
[2016-08-08 07:00] VITALS: BP 172/109
[2016-08-08 07:09] LABS: BARBITURATES NEG (NEG); BENZODIAZEPINES NEG (NEG); CANNABINOIDS POS (NEG); COCAINE NEG (NEG); METHADONE NEG (NEG); OPIATES POS (NEG); PHENCYCLIDINE NEG (NEG)
[2016-08-08 07:10] LABS: ETHANOL, URINE NEG (NEG)
--- NOTE | 2016-08-08 07:38 | EKG ---
[address] [place] [id number] Test Date: 2016-08-08 Test Time: 07:35:25 Pat Name: SAM CARRIZALES Department: Room: 207 Gender: M [employer] Supervisor: JESUSITA : [id number] Requested By: MAR BROWN Order Number: [id number] Reading MD: Measurements Intervals Benedict Rate: 73 P: 90 SD: 184 QRS: 82 QRSD: 94 T: 61 QT: 400 QTc: 444 Interpretive Statements SINUS RHYTHM R-S TRANSITION ZONE IN V LEADS DISPLACED TO THE LEFT QRS(T) CONTOUR ABNORMALITY CONSIDER ANTEROSEPTAL MYOCARDIAL DAMAGE POSSIBLY ABNORMAL ECG RI6.01 No previous ECG available for comparison
[2016-08-08] MEDS ORDERED: ASPIRIN ENTERIC COATED 81 MG TABLET.DR. PO SCH (09:00)
[2016-08-08] MEDS ORDERED: REGADENOSON 0.4 MG/5 ML DISP.SYRIN. IV ONE (10:30)
--- NOTE | 2016-08-08 10:55 | PDOC3 ---
Discharge Summary Visit Information Date of Admission: Aug 07, 2016 Date of Discharge: Aug 08, 2016 Admitting Diagnosis Comment: 1. chest pain, need to rule out unstable angina 2. h/o CAD post ICD,PPM 3. chronic systolic CHF EF 35% 2014 4. HTN 5.HLD 6. SYNcope 07/27, like 2/2 arrythmia 7. tobaccoism 8. non compliance before AMA 12/2015 as per card 9. drug abuse with marijuana, pt said only one time tho 10. h/o vfib? Final Diagnosis Problems Medical Problems: (1) Chest pain Status: Acute Brief Hospital Course Allergies Allergies Coded Allergies Type Severity Reaction Last Updated Verified ibuprofen Allergy Mild Nausea 01/29/16 Yes Vital Signs Vital Signs Date Time Temp Pulse Resp B/P Pulse Ox O2 Delivery O2 Flow Rate FiO2 08/08/16 07:00 98.0 73 18 172/109 95 Room Air 98.0 Lab Results Laboratory Tests Test 08/07/16 14:50 08/07/16 17:40 08/07/16 22:10 08/08/16 03:40 White Blood Count 4.5x10^3/uL (4.0-11.0) 5.1x10^3/uL (4.0-11.0) Red Blood Count 4.44x10^6/uL (4.30-5.70) 4.27x10^6/uL (4.30-5.70) Hemoglobin 14.6g/dL (13.0-17.5) 14.0g/dL (13.0-17.5) Hematocrit 42.9% (39.0-53.0) 41.2% (39.0-53.0) Mean Corpuscular Volume 97fL (79-100) 97fL (79-100) Mean Corpuscular Hemoglobin 33pg (25-35) 33pg (25-35) Mean Corpuscular Hemoglobin Concent 34g/dL (31-37) 34g/dL (31-37) Red Cell Distribution Width 13.4% (11.5-14.5) 13.8% (11.5-14.5) Platelet Count 196x10^3/uL (140-400) 192x10^3/uL (140-400) Neutrophils (%) (Auto) 33% (31-73) 21% (31-73) Lymphocytes (%) (Auto) 54% (24-48) 68% (24-48) Monocytes (%) (Auto) 11% (0-9) 8% (0-9) Eosinophils (%) (Auto) 1% (0-3) 1% (0-3) Basophils (%) (Auto) 1% (0-3) 1% (0-3) Neutrophils # (Auto) 1.5x10^3uL (1.8-7.7) 1.1x10^3uL (1.8-7.7) Lymphocytes # (Auto) 2.4x10^3/uL (1.0-4.8) 3.5x10^3/uL (1.0-4.8) Monocytes # (Auto) 0.5x10^3/uL (0.0-1.1) 0.4x10^3/uL (0.0-1.1) Eosinophils # (Auto) 0.0x10^3/uL (0.0-0.7) 0.1x10^3/uL (0.0-0.7) Basophils # (Auto) 0.1x10^3/uL (0.0-0.2) 0.0x10^3/uL (0.0-0.2) Prothrombin Time 13.5SEC (11.7-14.0) Prothromb Time International Ratio 1.1 (0.8-1.1) Sodium Level 142mmol/L (136-145) 143mmol/L (136-145) Potassium Level 4.2mmol/L (3.5-5.1) 4.5mmol/L (3.5-5.1) Chloride Level 107mmol/L (98-107) 106mmol/L (98-107) Carbon Dioxide Level 25mmol/L (21-32) 30mmol/L (21-32) Anion Gap 10 (6-14) 7 (6-14) Blood Urea Nitrogen 10mg/dL (8-26) 11mg/dL (8-26) Creatinine 0.9mg/dL (0.7-1.3) 0.8mg/dL (0.7-1.3) Estimated GFR (Cockcroft-Gault) 106.8 122.4 Glucose Level 95mg/dL (70-99) 96mg/dL (70-99) Calcium Level 8.9mg/dL (8.5-10.1) 8.8mg/dL (8.5-10.1) Magnesium Level 1.8mg/dL (1.8-2.4) Total Bilirubin 0.5mg/dL (0.2-1.0) Direct Bilirubin 0.1mg/dL (0.0-0.2) Aspartate Amino Transf (AST/SGOT) 19U/L (15-37) Alanine Aminotransferase (ALT/SGPT) 21U/L (16-63) Alkaline Phosphatase 67U/L (46-116) Creatine Kinase 160U/L (39-308) Creatine Kinase MB (Mass) 1.0ng/mL (0.0-3.6) Creatine Kinase MB Relative Index 0.6% (0-4) Troponin I Quantitative < 0.017ng/mL (0.000-0.055) 0.021ng/mL (0.000-0.055) 0.019ng/mL (0.000-0.055) XL-Msi-C-Type Natriuretic Peptide 688pg/mL (0-124) Total Protein 7.0g/dL (6.4-8.2) Albumin 3.5g/dL (3.4-5.0) Thyroid Stimulating Hormone (TSH) 0.708uIU/mL (0.358-3.74) Urine Collection Type Unknown Urine Color Yellow Urine Clarity Cloudy Urine pH 6.5 Urine Specific [place] <=1.005 Urine Protein Negativemg/dL (NEG-TRACE) Urine Glucose (UA) Negativemg/dL (NEG) Urine Ketones (Stick) Negativemg/dL (NEG) Urine Blood Negative (NEG) Urine Nitrite Negative (NEG) Urine Bilirubin Negative (NEG) Urine Urobilinogen Dipstick 0.2mg/dL (0.2 mg/dL) Urine Leukocyte Esterase Negative (NEG) Urine RBC 0/HPF (0-2) Urine WBC 0/HPF (0-4) Urine Bacteria 0/HPF (0-FEW) Urine Mucus Slight/LPF Triglycerides Level 37mg/dL (0-150) Cholesterol Level 143mg/dL (0-200) LDL Cholesterol, Calculated 93mg/dL (0-100) VLDL Cholesterol, Calculated 7mg/dL (0-40) HDL Cholesterol 43mg/dL (40-60) Cholesterol/HDL Ratio 3.3 Test 08/08/16 05:40 Urine Opiates Screen Pos (NEG) Urine Methadone Screen Neg (NEG) Urine Barbiturates Neg (NEG) Urine Phencyclidine Screen Neg (NEG) Urine Amphetamine/Methamphetamine Neg (NEG) Urine Benzodiazepines Screen Neg (NEG) Urine Cocaine Screen Neg (NEG) Urine Cannabinoids Screen Pos (NEG) Urine Ethyl Alcohol Neg (NEG) Laboratory Tests Test 08/07/16 14:50 08/07/16 17:40 08/07/16 22:10 08/08/16 03:40 White Blood Count 4.5x10^3/uL (4.0-11.0) 5.1x10^3/uL (4.0-11.0) Red Blood Count 4.44x10^6/uL (4.30-5.70) 4.27x10^6/uL (4.30-5.70) Hemoglobin 14.6g/dL (13.0-17.5) 14.0g/dL (13.0-17.5) Hematocrit 42.9% (39.0-53.0) 41.2% (39.0-53.0) Mean Corpuscular Volume 97fL (79-100) 97fL (79-100) Mean Corpuscular Hemoglobin 33pg (25-35) 33pg (25-35) Mean Corpuscular Hemoglobin Concent 34g/dL (31-37) 34g/dL (31-37) Red Cell Distribution Width 13.4% (11.5-14.5) 13.8% (11.5-14.5) Platelet Count 196x10^3/uL (140-400) 192x10^3/uL (140-400) Neutrophils (%) (Auto) 33% (31-73) 21% (31-73) Lymphocytes (%) (Auto) 54% (24-48) 68% (24-48) Monocytes (%) (Auto) 11% (0-9) 8% (0-9) Eosinophils (%) (Auto) 1% (0-3) 1% (0-3) Basophils (%) (Auto) 1% (0-3) 1% (0-3) Neutrophils # (Auto) 1.5x10^3uL (1.8-7.7) 1.1x10^3uL (1.8-7.7) Lymphocytes # (Auto) 2.4x10^3/uL (1.0-4.8) 3.5x10^3/uL (1.0-4.8) Monocytes # (Auto) 0.5x10^3/uL (0.0-1.1) 0.4x10^3/uL (0.0-1.1) Eosinophils # (Auto) 0.0x10^3/uL (0.0-0.7) 0.1x10^3/uL (0.0-0.7) Basophils # (Auto) 0.1x10^3/uL (0.0-0.2) 0.0x10^3/uL (0.0-0.2) Prothrombin Time 13.5SEC (11.7-14.0) Prothromb Time International Ratio 1.1 (0.8-1.1) Sodium Level 142mmol/L (136-145) 143mmol/L (136-145) Potassium Level 4.2mmol/L (3.5-5.1) 4.5mmol/L (3.5-5.1) Chloride Level 107mmol/L (98-107) 106mmol/L (98-107) Carbon Dioxide Level 25mmol/L (21-32) 30mmol/L (21-32) Anion Gap 10 (6-14) 7 (6-14) Blood Urea Nitrogen 10mg/dL (8-26) 11mg/dL (8-26) Creatinine 0.9mg/dL (0.7-1.3) 0.8mg/dL (0.7-1.3) Estimated GFR (Cockcroft-Gault) 106.8 122.4 Glucose Level 95mg/dL (70-99) 96mg/dL (70-99) Calcium Level 8.9mg/dL (8.5-10.1) 8.8mg/dL (8.5-10.1) Magnesium Level 1.8mg/dL (1.8-2.4) Total Bilirubin 0.5mg/dL (0.2-1.0) Direct Bilirubin 0.1mg/dL (0.0-0.2) Aspartate Amino Transf (AST/SGOT) 19U/L (15-37) Alanine Aminotransferase (ALT/SGPT) 21U/L (16-63) Alkaline Phosphatase 67U/L (46-116) Creatine Kinase 160U/L (39-308) Creatine Kinase MB (Mass) 1.0ng/mL (0.0-3.6) Creatine Kinase MB Relative Index 0.6% (0-4) Troponin I Quantitative < 0.017ng/mL (0.000-0.055) 0.021ng/mL (0.000-0.055) 0.019ng/mL (0.000-0.055) XT-Fem-C-Type Natriuretic Peptide 688pg/mL (0-124) Total Protein 7.0g/dL (6.4-8.2) Albumin 3.5g/dL (3.4-5.0) Thyroid Stimulating Hormone (TSH) 0.708uIU/mL (0.358-3.74) Urine Collection Type Unknown Urine Color Yellow Urine Clarity Cloudy Urine pH 6.5 Urine Specific [place] <=1.005 Urine Protein Negativemg/dL (NEG-TRACE) Urine Glucose (UA) Negativemg/dL (NEG) Urine Ketones (Stick) Negativemg/dL (NEG) Urine Blood Negative (NEG) Urine Nitrite Negative (NEG) Urine Bilirubin Negative (NEG) Urine Urobilinogen Dipstick 0.2mg/dL (0.2 mg/dL) Urine Leukocyte Esterase Negative (NEG) Urine RBC 0/HPF (0-2) Urine WBC 0/HPF (0-4) Urine Bacteria 0/HPF (0-FEW) Urine Mucus Slight/LPF Triglycerides Level 37mg/dL (0-150) Cholesterol Level 143mg/dL (0-200) LDL Cholesterol, Calculated 93mg/dL (0-100) VLDL Cholesterol, Calculated 7mg/dL (0-40) HDL Cholesterol 43mg/dL (40-60) Cholesterol/HDL Ratio 3.3 Test 08/08/16 05:40 Urine Opiates Screen Pos (NEG) Urine Methadone Screen Neg (NEG) Urine Barbiturates Neg (NEG) Urine Phencyclidine Screen Neg (NEG) Urine Amphetamine/Methamphetamine Neg (NEG) Urine Benzodiazepines Screen Neg (NEG) Urine Cocaine Screen Neg (NEG) Urine Cannabinoids Screen Pos (NEG) Urine Ethyl Alcohol Neg (NEG) Brief Hospital Course Mr. Reddy is a 51 old AA male admitted for CP, to undergo MPI, pt more of hungry than anything else and wants to eat soon and dc if MPI neg, REst of interaction limited bec of above behavior. Pt seen. Chart reviewed Dw Rn Home later if MPI neg Proc: MPI COnsults: Cards Discharge Information Condition at Discharge: Improved, Stable Disposition/Orders: D/C to Home Scheduled Aspirin (Aspirin Ec) 1 TAB PO DAILY (Reported) Carvedilol (Coreg) 1 TAB PO BID (Reported) Erythromycin Base (Erythromycin) 1 MARIE EACHEYE QIDPRN Lisinopril (Lisinopril) 1 TAB PO DAILY (Reported) Naproxen Sodium (Anaprox Ds) 550 MG PO Q12HR Spironolactone (Spironolactone) 1 TAB PO DAILY (Reported) Scheduled PRN Hydrocodone/Apap 5-325 ([place] 5-325 Tablet) 1 TAB PO PRN Q6HRS PRN PRN PAIN Miscellaneous Medications [place]-3 Fatty Acids (Fish Oil) 300 MG PO (Reported) ASHISH STALLINGS MD Aug 08, 2016 10:54
--- NOTE | 2016-08-08 11:02 | PDOC ---
MAR BROWN EXECUTIVE STAFF ASSISTANT 08/08/16 1102: CARDIO Progress Notes Date and Time Date of Service 08/08/2016 Time of Evaluation 0930 Subjective Subjective: No Chest Pain, No shortness of breath, No Palpitations, No Dizziness, Other (slept well, anxious about stress test) Vitals Vitals Vital Signs Date Time Temp Pulse Resp B/P Pulse Ox O2 Delivery O2 Flow Rate FiO2 08/08/16 07:00 98.0 73 18 172/109 95 Room Air 98.0 Weight Weight [ ] Input and Output Intake and Output Intake and Output 08/08/16 07:00 Intake Total 0 ml Output Total 200 ml Balance -200 ml Intake Oral 0 ml Output Urine Total 200 ml Laboratory Labs Laboratory Tests Test 08/07/16 14:50 08/07/16 17:40 08/07/16 22:10 08/08/16 03:40 White Blood Count 4.5x10^3/uL (4.0-11.0) 5.1x10^3/uL (4.0-11.0) Red Blood Count 4.44x10^6/uL (4.30-5.70) 4.27x10^6/uL (4.30-5.70) Hemoglobin 14.6g/dL (13.0-17.5) 14.0g/dL (13.0-17.5) Hematocrit 42.9% (39.0-53.0) 41.2% (39.0-53.0) Mean Corpuscular Volume 97fL (79-100) 97fL (79-100) Mean Corpuscular Hemoglobin 33pg (25-35) 33pg (25-35) Mean Corpuscular Hemoglobin Concent 34g/dL (31-37) 34g/dL (31-37) Red Cell Distribution Width 13.4% (11.5-14.5) 13.8% (11.5-14.5) Platelet Count 196x10^3/uL (140-400) 192x10^3/uL (140-400) Neutrophils (%) (Auto) 33% (31-73) 21% (31-73) Lymphocytes (%) (Auto) 54% (24-48) 68% (24-48) Monocytes (%) (Auto) 11% (0-9) 8% (0-9) Eosinophils (%) (Auto) 1% (0-3) 1% (0-3) Basophils (%) (Auto) 1% (0-3) 1% (0-3) Neutrophils # (Auto) 1.5x10^3uL (1.8-7.7) 1.1x10^3uL (1.8-7.7) Lymphocytes # (Auto) 2.4x10^3/uL (1.0-4.8) 3.5x10^3/uL (1.0-4.8) Monocytes # (Auto) 0.5x10^3/uL (0.0-1.1) 0.4x10^3/uL (0.0-1.1) Eosinophils # (Auto) 0.0x10^3/uL (0.0-0.7) 0.1x10^3/uL (0.0-0.7) Basophils # (Auto) 0.1x10^3/uL (0.0-0.2) 0.0x10^3/uL (0.0-0.2) Prothrombin Time 13.5SEC (11.7-14.0) Prothromb Time International Ratio 1.1 (0.8-1.1) Sodium Level 142mmol/L (136-145) 143mmol/L (136-145) Potassium Level 4.2mmol/L (3.5-5.1) 4.5mmol/L (3.5-5.1) Chloride Level 107mmol/L (98-107) 106mmol/L (98-107) Carbon Dioxide Level 25mmol/L (21-32) 30mmol/L (21-32) Anion Gap 10 (6-14) 7 (6-14) Blood Urea Nitrogen 10mg/dL (8-26) 11mg/dL (8-26) Creatinine 0.9mg/dL (0.7-1.3) 0.8mg/dL (0.7-1.3) Estimated GFR (Cockcroft-Gault) 106.8 122.4 Glucose Level 95mg/dL (70-99) 96mg/dL (70-99) Calcium Level 8.9mg/dL (8.5-10.1) 8.8mg/dL (8.5-10.1) Magnesium Level 1.8mg/dL (1.8-2.4) Total Bilirubin 0.5mg/dL (0.2-1.0) Direct Bilirubin 0.1mg/dL (0.0-0.2) Aspartate Amino Transf (AST/SGOT) 19U/L (15-37) Alanine Aminotransferase (ALT/SGPT) 21U/L (16-63) Alkaline Phosphatase 67U/L (46-116) Creatine Kinase 160U/L (39-308) Creatine Kinase MB (Mass) 1.0ng/mL (0.0-3.6) Creatine Kinase MB Relative Index 0.6% (0-4) Troponin I Quantitative < 0.017ng/mL (0.000-0.055) 0.021ng/mL (0.000-0.055) 0.019ng/mL (0.000-0.055) RF-Jgs-C-Type Natriuretic Peptide 688pg/mL (0-124) Total Protein 7.0g/dL (6.4-8.2) Albumin 3.5g/dL (3.4-5.0) Thyroid Stimulating Hormone (TSH) 0.708uIU/mL (0.358-3.74) Urine Collection Type Unknown Urine Color Yellow Urine Clarity Cloudy Urine pH 6.5 Urine Specific [place] <=1.005 Urine Protein Negativemg/dL (NEG-TRACE) Urine Glucose (UA) Negativemg/dL (NEG) Urine Ketones (Stick) Negativemg/dL (NEG) Urine Blood Negative (NEG) Urine Nitrite Negative (NEG) Urine Bilirubin Negative (NEG) Urine Urobilinogen Dipstick 0.2mg/dL (0.2 mg/dL) Urine Leukocyte Esterase Negative (NEG) Urine RBC 0/HPF (0-2) Urine WBC 0/HPF (0-4) Urine Bacteria 0/HPF (0-FEW) Urine Mucus Slight/LPF Triglycerides Level 37mg/dL (0-150) Cholesterol Level 143mg/dL (0-200) LDL Cholesterol, Calculated 93mg/dL (0-100) VLDL Cholesterol, Calculated 7mg/dL (0-40) HDL Cholesterol 43mg/dL (40-60) Cholesterol/HDL Ratio 3.3 Test 08/08/16 05:40 Urine Opiates Screen Pos (NEG) Urine Methadone Screen Neg (NEG) Urine Barbiturates Neg (NEG) Urine Phencyclidine Screen Neg (NEG) Urine Amphetamine/Methamphetamine Neg (NEG) Urine Benzodiazepines Screen Neg (NEG) Urine Cocaine Screen Neg (NEG) Urine Cannabinoids Screen Pos (NEG) Urine Ethyl Alcohol Neg (NEG) Physical Exam HEENT: Neck Supple W Full Motion Chest: Symmetric LUNGS: Clear to Auscultation Heart: S1S2, RRR (SR with occasional NSVT) Abdomen: Soft N/T Extremities: No Edema, No Calf Tenderness Neurology: alert, oriented, follow commands Assessment Assessment 1. Chest pain (mixed typical/atypical features), EKG changes 2. CAD: hx of [place] 2012 requiring IABP and eventual placement of AICD with known V -fib. Verbalized no stents in the past. 3. HTN: labile 4. HLP: no routine statin at home 5. Chronic systolic CHF/Ischemic cardiomyopathy: Lowest recorded EF at 15%. compensated. 6. Syncope: x2 8 days ago, with verbalized firing of AICD but no treatment per interrogation. Arrhythmia is a factor but extracardiac issues including ETOH, opiates, dehydration, marijuana are contributors as well. 7. AICD in situ: medtronic 8. Tobaccoism 9. Known for noncompliance in the past: left AMA 12/2015 from ED for CP. 10. NSVT: intermittent periods (4x, 4-7 beats each) overnight 11. Substance abuse: positive for opioids no prescription for this. Also positive for marijuana. Recommendations 1. Continue with routine home cardiac regimen. Currently on coreg and sotalol ( likely use for ventricular arrhythmia) 2. Continue with secondary prevention. Discussed adherence to treatment regimen and follow ups with [facility] cardiology.. 3. Interrogation of device revealed NSVT. Will consider changing coreg to metoprolol. If Mg low then will replace. 4. Await TTE and MPI today (hesitant at first to MPI claiming claustrophobia, offered antianxiety but deferred, agreed to proceed). 5. Smoking cessation, emphasized compliance and abstinence to marijuana. 6. Start on statin. 7. Further recommendation pending diagnostics today, if no significant changes then pt is to follow up with . [facility] cardiology. JUSTINO PAL MD 08/09/16 0700: CARDIO Progress Notes Assessment Assessment Patient seen and examined 08/08/16. Agree with KILN TRANSFER OPERATOR's assessment and plan. Lexiscan nuclear stress test did not show any significant ischemia. Chronic systolic heart failure well compensated. Continue current medical regimen. Follow-up with primary supervisor endless track vehicle MAR BROWN APRN Aug 08, 2016 11:02 JUSTINO PAL MD Aug 09, 2016 07:00
--- NOTE | 2016-08-08 13:14 | CARD ---
APPROVED REPORT EXAM: Two-dimensional and M-mode echocardiogram with Doppler and color Doppler. Other Information Quality : Average Rhythm : Pacemaker INDICATION Cardiac Disease: CAD Chest Pain Syncope 2D DIMENSIONS RVDd3.0 (2.9-3.5cm)Left Atrium(2D)3.9 (1.6-4.0cm) IVSd1.2 (0.7-1.1cm)Aortic Root(2D)3.4 (2.0-3.7cm) LVDd5.5 (3.9-5.9cm)LVOT Diameter2.5 (1.8-2.4cm) PWd1.3 (0.7-1.1cm)LVDs4.8 (2.5-4.0cm) FS (%) 12.1 %SV38.0 ml LVEF(%)25.8 (>50%) Aortic Valve AoV Peak Inderjit.119.4cm/sAoV VTI20.4cm AO Peak GR.5.7mmHgLVOT Peak Inderjit.69.4cm/s LVOT VTI 11.74cmAO Mean GR.3mmHg MERCEDES (VMAX)2.58ij5FPM (VTI)2.83cm2 Mitral Valve MV E Ylhwnekq50.3cm/sMV DECEL DRFS593ud MV A Xckiwqnn54.0cm/sMV E Mean Gr.2mmHg MV HSB31oeI/A Ratio0.7 MV A Yfvfsogn659udTQR (PHT)2.62cm2 TDI E/Lateral E'14.4E/Medial E'15.2 Pulmonary Valve PV Peak Mgwmwzkg92.4cm/sPV Peak Grad.4mmHg RVOT VTI14.5cm Tricuspid Valve TR P. Gtjncubk314nz/sRAP MWFPJVGS0nzTk TR Peak Gr.74aiWkDIJC54gkSf LEFT VENTRICLE The left ventricle is normal size. There is mild concentric left ventricular hypertrophy. Left ventri [place] systolic function is severely impaired. The Ejection Fraction is 20-25%. There is severe global h ypokinesis of the left ventricle. Tissue Doppler imaging reveals mild left ventricular diastolic dysf unction. RIGHT VENTRICLE The right ventricle is normal size. The right ventricular systolic function is normal. There is a pac emaker/ICD lead in the RV/RA. ATRIA The left atrium size is normal. The right atrium size is normal. The interatrial septum is intact wit h no evidence for an atrial septal defect or patent foramen ovale as noted on 2-D or Doppler imaging. AORTIC VALVE The aortic valve is normal in structure and function. The aortic valve is trileaflet. Doppler and Col or Flow revealed no significant aortic regurgitation. There is no significant aortic valvular stenosi s. MITRAL VALVE The mitral valve is normal in structure and function. There is no mitral valve stenosis. Doppler and Color Flow revealed no mitral valve regurgitation noted. TRICUSPID VALVE The tricuspid valve is normal in structure and function. Doppler and Color Flow revealed mild tricusp id regurgitation. The PA pressure was estimated at 33 mmHg. There is no tricuspid valve stenosis. PULMONIC VALVE The pulmonic valve is not well visualized. Doppler and Color Flow revealed no pulmonic valvular regur gitation. There is no pulmonic valvular stenosis. GREAT VESSELS The aortic root is normal in size. Normal pulmonary venous flow (Doppler). The IVC is normal in size and collapses >50% with inspiration. PERICARDIAL EFFUSION There is no evidence of significant pericardial effusion. Critical Notification Critical Value: No <Conclusion> Left ventricle systolic function is severely impaired. The Ejection Fraction is 20-25%. There is severe global hypokinesis of the left ventricle. There is a pacemaker/ICD lead in the RV/RA. The aortic valve is normal in structure and function. The aortic valve is trileaflet.
[2016-08-08] MEDS ORDERED: MAGNESIUM SULFATE 2GM 50 ML IV ONE (13:15)
--- NOTE | 2016-08-08 14:44 | RAD ---
APPROVED REPORT Test Type: Pharmacological Stress Nurse/Tech: Kelly Mclain R.N. Test Indications: chest discomfort Cardiac History: arrythmia, htn, pacemaker/icd, smoker Medications: see ehr Medical History: see ehr Resting ECG: SR Resting Heart Rate: 74 bpm Resting Blood Pressure: 157/96mmHg Pretest Chest Pain: No chest pain Nurse/Tech Notes lungs cta, heart tones regular, good radial pulse Consent: The procedure was explained to the patient in lay terms. Informed consent was witnessed. Farshad eout was entered into [employer]. History and Stress Test performed by Kelly Mclain R.N. Pharm. Details Pharmacologic stress testing was performed using 0.4mg per 5ml of regadenoson given intravenously ove r 7-10 seconds. Stress Symptoms No chest pain or symptoms. POST EXERCISE Reason for Termination: Infusion complete Target HR: No Max HR: 105 bpm Max Blood Pressure: 154/94mmHg Chest Pain: No. Arrhythmia: Yes. unifocal PVCs noted ST Change: No. INTERPRETATION Stress EKG Conclusion: No evidence of stress induced ischemic changes. Imaging Protocol IMAGE PROTOCOL: Rest Tc-99m/stress Tc-99m 1 day Rest: Stress: Viability: Radiopharm.Tc99m [id number] Sestamibi Dose12.2mCi 35.5mCi Duration 15min. 10min. Img Date 08/08/2016 08/08/2016 Inj-Img [id number]. 90min. Rest Admin Site:IV - Left ForearmAdministrator:IVORY Duncan Stress Admin Site: IV - Left ForearmAdministrator: ALEXY Medina, ARRT (R)(N) STRESS DATA End Diast. Vol.226.0mlAv. Heart Rate76.0bpm End Syst. Vol.163.0mlCO Index BSA4.8L/min Myocardial Gdgr984.0gEject. Wwugejnt71.0% Stress Rates Pk. Fill Rate1.38EDV/secLVtime Pk. Fill 102.07msec Pk. Empty Rate1.19ESV/secLVtime Pk. Becei285.67msec 05/21 Pk. Fill0.99EDV/sec Stress Scores Regional WT3.00Summed WT46.00 Regional WM0.00Summed WM35.00 LV Perfusion Small fixed apical defect but otherwise grossly normal perfusion. Wall Motion Moderate diffuse global hypokinesis with asymmetric septal motion likely secondary to pacing. LV Perf. Quant 17 Seg. SSS2.00 17 Seg. SRS4.00 17 Seg. SDS1.00 Stress Defect Extent (% LAD)8.80Rest Defect Extent (% LAD)3.10Rev. Defect Extent (% LAD)7.50 Stress Defect Extent (% LCX) 0.00Rest Defect Extent (% LCX)23.80Rev. Defect Extent (% LCX)0.00 Stress Defect Extent (% RCA)0.00Rest Defect Extent (% RCA)8.90Rev. Defect Extent (% RCA)0.00 Stress Defect Extent (% ROSSY)4.60Rest Defect Extent (% ROSSY)8.50Rev. Defect Extent (% ROSSY)4.10 Other Information Quality:Average Risk Assessment: Moderate Risk Conclusion 1. No evidence of stress induced EKG changes. 2. Grossly normal perfusion at stress/rest with fixed apical defect (likely either prior infarct or n ormal variant with apical thinning) 3. Severe LV dysfunction. EF 28% 4. Moderate risk study due to low EF.
[2016-08-08 15:00] VITALS: BP 160/108
[2016-08-08] MEDS: SPIRONOLACTONE 25 MG TABLET PO SCH (15:11)
[2016-08-08] MEDS: LISINOPRIL 10 MG TABLET PO SCH (15:12)
[2016-08-08] MEDS: SOTALOL 80 MG TABLET. PO SCH (15:12)
[2016-08-08] MEDS: CARVEDILOL 12.5 MG TABLET PO SCH ×2 (15:13→15:18)
[2016-08-08 15:18] VITALS: BP 160/108
[2016-08-08] MEDS: ENOXAPARIN 40 MG/0.4 ML DISP.SYRIN. SQ SCH (15:18)
[2016-08-08] MEDS ORDERED: ATORVASTATIN CALCIUM 10 MG TABLET. PO SCH (21:00)
== END 2016-08-08 17:30 | disposition home or self-care (01) | DRG 303 ==
LOC: ER 14:28 → 2 NORTH 15:39
PROVIDERS: ADMIT Internal Medicine; ATTEND Internal Medicine
DX: I25.110 Atherosclerotic heart disease of native coronary artery with unstable angina pectoris (principal); I47.2 Ventricular tachycardia; I50.22 Chronic systolic (congestive) heart failure; E78.5 Hyperlipidemia, unspecified; E86.0 Dehydration; F12.10 Cannabis abuse, uncomplicated; F17.200 Nicotine dependence, unspecified, uncomplicated; I25.2 Old myocardial infarction; I25.5 Ischemic cardiomyopathy; I11.0 Hypertensive heart disease with heart failure; Z82.49 Family history of ischemic heart disease and other diseases of the circulatory system; Z91.19 Patient's noncompliance with other medical treatment and regimen; Z95.810 Presence of automatic (implantable) cardiac defibrillator
CPT/HCPCS: 36415; 71010; 78452; 80048; 80061; 80076; 81001; 82553; 83735; 83880; 84443; 84484; 85027; 85610; 93005; 93017; 93306; 96374; 96375; 96376; A9500; G0481; J0360; J1650; J2270; J2785; J7060; 99285-25